=== PATIENT | male | born 1960 ===

== ENCOUNTER 2017-05-20 08:13 | Day surgery (SDC) | payer OTHER ==
[2017-05-20 09:04] VITALS: BMI 22.7
[2017-05-20] MEDS ORDERED: Propofol 10 mg/ml Inj (20 ML) ONE (09:55)
[2017-05-20] MEDS ORDERED: Midazolam 2 MG/2 ML VIAL ONE (09:55)
[2017-05-20 12:19] VITALS: TEMP 97
[2017-05-20 12:28] VITALS: BP 118/62; PULSE 70; RESP 18; O2SAT 100
== END 2017-05-20 11:40 | disposition home or self-care (01) ==
LOC: C.ENDO 08:13
PROVIDERS: ATTEND Internal Medicine Gastroenterology
DX: K20.8 Other esophagitis (principal); K64.8 Other hemorrhoids; K29.70 Gastritis, unspecified, without bleeding
CPT/HCPCS: 43239; 45378; 82948; 88305; 88312; 88342; J2001; J2250; J2704; J3010